=== PATIENT | female | born 1945 | race Two or more races ===

== ENCOUNTER → 2021-01-22 06:55 | Outpatient (CLI) | payer OTHER ==
[~2021-01-22 06:55] MED LIST: GABAPENT PO; IRBESARTAN-HCT1 EAC1 PO
== END | disposition home or self-care (01) ==
LOC: LAB 06:55
PROVIDERS: ATTEND Obstetrics & Gynecology
DX: Z03.818 Encounter for observation for suspected exposure to other biological agents ruled out (principal); Z20.828 Contact with and (suspected) exposure to other viral communicable diseases

== ENCOUNTER 2021-01-22 07:03 | Day surgery (SDC) | payer OTHER | END 2021-01-22 19:20 | disposition home or self-care (01) | LOC: CIR.AMB 07:03 | PROVIDERS: ATTEND Obstetrics & Gynecology | DX: N95.0 Postmenopausal bleeding (principal); N88.2 Stricture and stenosis of cervix uteri; Z20.822 Contact with and (suspected) exposure to COVID-19 ==